=== PATIENT | female | born 1960 | race Caucasian/White ===

== ENCOUNTER 2018-03-11 16:22 | Emergency (ER) | payer MEDICARE, OTHER ==
[2018-03-11 16:46] LABS: BILIRUBIN,URINE NEGATIVE (NEG); CLARITY,URINE CLEAR; COLOR,URINE YELLOW; GLUCOSE,URINE NEGATIVE (NEG); NITRITE,URINE NEGATIVE (NEG); PROTEIN,URINE NEGATIVE (NEG-TRACE); UROBILINOGEN,URINE 0.2 mg/dL (0.2 mg/dL)
[2018-03-11 17:02] LABS: BACTERIA,URINE 0 /HPF (0-FEW); SQUAMOUS EPITHELIAL CELL,UR MOD /LPF
== END 2018-03-11 17:13 | disposition home or self-care (01) ==
LOC: ER 16:22
DX: M54.5 Low back pain (principal); F41.9 Anxiety disorder, unspecified; F31.9 Bipolar disorder, unspecified; Z88.8 Allergy status to other drugs, medicaments and biological substances
CPT/HCPCS: 81001; 87086; 99284

== ENCOUNTER 2018-03-16 13:42 | Emergency (ER) | payer MEDICARE | END 2018-03-16 14:00 | disposition home or self-care (01) | LOC: ER 13:42 | DX: G89.29 Other chronic pain (principal); M54.9 Dorsalgia, unspecified | CPT/HCPCS: 99281 ==

== ENCOUNTER 2020-11-24 12:25 | Emergency (ER) | payer MEDICARE ==
[~2020-11-24] VITALS: Ht 152.4 cm; Wt 65.0 kg
[~2020-11-24 12:25] MED LIST: CLON-77 PO; DIVA250T4 PO; METH4TAB2 PO; QUET100T4 PO; SERT50TA PO; TRAZ-118 PO
[2020-11-24 12:28] VITALS: BP 129/96
--- NOTE | 2020-11-24 13:09 | RAD ---
EXAM: Left femur, 2 views. HISTORY: Blunt trauma. COMPARISON: None. FINDINGS: 2 views of the left femur are obtained. There is no fracture, dislocation or subluxation. T here is no periosteal reaction or lytic or sclerotic osseous lesion. There are findings suggesting mi ld chronic hip impingement. IMPRESSION: No acute osseous finding. Electronically signed by: Lucinda Faye MD (11/24/2020 1:02 PM) [facility]
[2020-11-24] MEDS ORDERED: LIDO1ADH78 TP (13:20)
--- NOTE | 2020-11-24 13:21 | PHYS DOC ---
Past Medical History Past Medical History: Anxiety, Bipolar, Bronchitis, Depression, Schizophrenia, Other Past Surgical History: No Surgical History, Tonsillectomy Smoking Status: Current Every Day Smoker Alcohol Use: Sober Drug Use: None General Adult EDM: Chief Complaint: LOWER EXT PAIN HPI: HPI: 60-year-old female presents the ED with complaints of left thigh pain that shoots all the way up her back to her neck and both arms for the past 2 weeks that started after she was walking in a dark room and banged her distal left thigh on a cushioned armchair recliner. Patient did not fall, hit her head or lose consciousness. Is not on any anticoagulants. Pt asks, "Is it broken? Is there a blood clot?" Has been applying bengay. Asks what she can take for the pain. Denies any associated unilateral leg swelling, midline back pain, fever, saddle anesthesia, joint pain, decreased range of motion, urinary or bowel retention or incontinence, skin color changes, rash, sensory deficits, weakness or paralysis. Review of Systems: Review of Systems: Constitutional: Denies fever or chills. [] Eyes: Denies change in visual acuity. [] HENT: Denies nasal congestion or sore throat. [] Respiratory: Denies cough or shortness of breath. [] Cardiovascular: Denies chest pain or edema. [] GI: Denies abdominal pain, nausea, vomiting, bloody stools or diarrhea. [] : Denies dysuria or hematuria Musculoskeletal: Denies back pain or joint swelling Integument: Denies rash or diaphoresis Neurologic: Denies headache, focal weakness or sensory changes. [] Endocrine: Denies polyuria or polydipsia. [] Lymphatic: Denies swollen glands. [] Psychiatric: Denies depression or anxiety. [] Heart Score: Risk Factors: Risk Factors: DM, Current or recent (<one month) smoker, HTN, HLP, family history of CAD, obesity. Risk Scores: Score 0 - 3: 2.5% MACE over next 6 weeks - Discharge Home Score 4 - 6: 20.3% MACE over next 6 weeks - Admit for Clinical Observation Score 7 - 10: 72.7% MACE over next 6 weeks - Early Invasive Strategies Allergies: Allergies: Allergies Coded Allergies Type Severity Reaction Last Updated Verified haloperidol Allergy Intermediate 05/28/14 No Physical Exam: PE: Constitutional: Well developed, well nourished, in no acute distress, non-toxic appearance. HENT: Normocephalic, atraumatic, Eyes: EOMI, conjunctiva normal, no discharge. Neck: Normal range of motion, supple, Cardiovascular: S1/2 present, regular rhythm Lungs & Thorax: Speaking in full sentences, bilateral equal chest rise, no ta chypnea or increased work of breathing Abdomen: soft, no tenderness, Skin: Warm, dry, no erythema, no rash. [] Back: No midline tenderness, no CVA tenderness. [] Extremities: No tenderness, no cyanosis, no unilateral lower extremity edema, no focal pain at both ankles, knees or hips, no signs of trauma to patient's left thigh, one small spider vein Neurologic: Alert and oriented X 3, normal motor function, normal sensory function, no focal deficits noted. [], No antalgic gait Psychologic: Affect normal, judgement normal, mood normal. [] Current Patient Data: Vital Signs: Vital Signs Date Time Temp Pulse Resp B/P (MAP) Pulse Ox O2 Delivery O2 Flow Rate FiO2 11/24/20 12:28 98.1 100 18 129/96 (107) 96 Room Air 98.1 EKG: EKG: [] Radiology/Procedures: Radiology/Procedures: IMAGING REPORT Signed PATIENT: ARLETTE CAM ACCOUNT: [id number] : 1960 LOCATION: ER AGE: 60 SEX: F EXAM STATUS: PRE ER ORD. PHYSICIAN: KELLE ROONEY DO REASON: left thigh pain x2 weeks, hit leg on table PROCEDURE: LEFT FEMUR XRAY EXAM: Left femur, 2 views. HISTORY: Blunt trauma. COMPARISON: None. FINDINGS: 2 views of the left femur are obtained. There is no fracture, dislocation or subluxation. There is no periosteal reaction or lytic or sclerotic osseous lesion. There are findings suggesting mild chronic hip impingement. IMPRESSION: No acute osseous finding. Electronically signed by: Lucinda Faye MD (11/24/2020 1:02 PM) [facility] DICTATED and SIGNED BY: LUCINDA FAYE MD DATE: 11/24/20 [id number] 0 Course & Med Decision Making: Course & Med Decision Making Pertinent Labs and Imaging studies reviewed. (See chart for details) Concern for blunt thigh pain 2 weeks ago with no signs of trauma, able to ambulate. Location of trauma is not consistent with radiculopathy from the left thigh of the back to both arms. Pt appears to have some cognitive delay-is knowledgable about broken bones and blood clots, but appeared confused when asked if she tried apap or nsaids otc. When rx lido patches and recommend, rice, otc analgesia and to establish primary medical care. Will discharge home with strict ED return precautions were given for severe pain, decreased range of motion, neurologic deficits, fever or joint swelling. Encouraged urgent outpatient follow-up with PMD and orthopedic surgery. Life-threatening processes were considered but are low suspicion at this time, given history, physical exam and ED workup. Pt was educated on all prescription medications and adverse effects. All patient's questions were answered and pt was stable at time of discharge. Life/limb-threatening differential includes but is not limited to, intracranial hemorrhage, diffuse axonal injury, spinal cord syndrome, unstable cervical fracture or SCIWORA, fractures or joint dislocations, neurovascular injuries, organ injury or laceration, pneumothorax, pneumoperitoneum, pericardial tamponade, unstable pelvic fracture, compartment syndrome, flail chest or respiratory distress, burn injury or asphyxiation I spoken with the patient and her caregivers. I explained the patient's condition, diagnoses and treatment plan based on the information available to me at this time. I have answered the patient and her caregiver's questions and addressed any concerns. The patient and her caregivers have a good understan ding of patient's diagnosis, condition and treatment plan as can be expected at this point. Vital signs have been stable. Patient's condition is stable and appropriate for discharge from the emergency department. Patient will pursue further outpatient evaluation with primary care physician or other designated or consulting physician as outlined in the discharge instructions. The patient and/or caregivers are agreeable to this plan of care and follow-up instructions have been explained in detail. The patient and/or caregivers have received these instructions in written form and have expressed an understanding of the discharge instructions. The patient and/or caregivers are aware that any significant change of condition or worsening of symptoms should prompt immediate return to this or the closest emergency department or call to 911. Amos Disclaimer: Amos Disclaimer: This electronic medical record was generated, in whole or in part, using a voice recognition dictation system. Departure Departure Impression: Primary Impression: Left thigh pain Additional Impression: Blunt trauma of left thigh Disposition: 01 DC HOME SELF CARE/HOMELESS Condition: STABLE Referrals: NO PCP (PCP) FOLLOW UP WITH FAMILY MEDICINE: Family Medicine Address: [address] [place] [address] Patient Instructions: Blunt Trauma, Contusion Additional Instructions: FOLLOW UP WITH ORTHOPEDICS: Orthopaedic Sports Medicine Orthopaedic Surgery [facility] Address: [address], [facility] [address] [place] [address] EMERGENCY DEPARTMENT GENERAL DISCHARGE INSTRUCTIONS Thank you for coming to [facility] Emergency Department (ED) today and trusting us with you care. We trust that you had a positive experience in our Emergency Department. If you wish to speak to the department management, you may call the Director at [phone]. YOUR FOLLOW UP INSTRUCTIONS ARE FOLLOWS: 1. Do you have a private Doctor? If you do not have a private doctor, please ask for a resource list of physicians or clinics that may be able to assist you with follow up care. 2. The Emergency Physicain has interpreted your x-rays. The X-Ray specialist will also review them. If there is a change in the findings, you will be notified in 48 hours when at all possible. 3. A lab test or culture has been done, your results will be reviewed and you will be notified if you need a change in treatment. ADDITIONAL INSTRUCTIONS AND INFORMATION: 1. Your care today has been supervised by a physician who is specially trained in emergency care. Many problems require more than one evaluation for a complete diagnosis and treatment. We recommend that you schedule your follow up appointment as recommended to ensure complete treatment of you illness or injury. If you are unable to obtain follow up care and continue to have a problem, or if your condition worsens, we recommend that you return to the ED. 2. We are not able to safely determine your condition over the phone nor are we able to give sound medical advice over the phone. For these safety reasons, if you call for medical advice we will ask you to come to the ED for further evaluation. 3. If you have any questions regarding these discharge instructions please call the ED at [phone]. SAFETY INFORMATION: In the interest of safety, wellness, and injury prevention; we encourage you to wear your sealbelt, if you smoke; quite smoking, and we encourage family to use a protective helmet for bicycling and other sporting events that present an increased risk for head injury. IF YOUR SYMPTOMS WORSEN OR NEW SYMPTOMS DEVELOP, OR YOU HAVE CONCERNS ABOUT YOUR CONDITION; OR IF YOUR CONDITION WORSENS WHILE YOU ARE WAITING FOR YOUR FOLLOW UP APPOINTMENT; EITHER CONTACT YOUR PRIMARY CARE DOCTOR, THE PHYSICIAN WHOSE NAME AND NUMBER YOU WERE GIVEN, OR RETURN TO THE ED IMMEDIATELY. Scripts Lidocaine (Lido Oseas) 1 Each Adh..patch 1 EACH TP DAILY for 5 Days, #5 PATCH Apply 1 patch for 12 hours, remove for another 12 hours. May repeat, 1 patch per day as instructed above. Prov: KELLE ROONEY DO 11/24/20 KELLE ROONEY DO Nov 24, 2020 13:21
== END 2020-11-24 13:32 | disposition home or self-care (01) ==
LOC: ER 12:25
DX: S79.922A Unspecified injury of left thigh, initial encounter (principal); F31.9 Bipolar disorder, unspecified; F20.9 Schizophrenia, unspecified; F17.200 Nicotine dependence, unspecified, uncomplicated; Z88.8 Allergy status to other drugs, medicaments and biological substances; W22.03XA Walked into furniture, initial encounter; Y93.89 Activity, other specified; Y92.89 Other specified places as the place of occurrence of the external cause; Y99.8 Other external cause status
CPT/HCPCS: 73552; 99283